=== PATIENT | female | born 1960 | race Caucasian/White ===

== ENCOUNTER → 2016-07-31 | Outpatient (CLI) | payer BC ==
[~2016-07-31] MED LIST: 'TENORMIN50 MG PO; HEART MED PO; LIPITOR20 MG PO; METFORMIN500 MG PO; NORCO 325 MG-51 TAB PO
[2016-07-31 10:25] LABS: ALKALINE PHOSPHATASE 97 U/L (45-117); BILIRUBIN, TOTAL 0.8 mg/dl (0.2-1.0); BUN 12 mg/dl (7-24); CARBON DIOXIDE 25 mmol/L (21-32); CHLORIDE 107 mmol/L (98-107); CHOLESTEROL 273 mg/dL (<200); CPK 62 U/L (26-192); EST GLOM FILT AFRICAN AMERICAN > 60 ml/min; GLUCOSE 102 mg/dL (65-99); HDL CHOLESTEROL 46 mg/dl (40-60); LDL CHOLESTEROL 169 mg/dL (9-159); POTASSIUM 3.9 mmol/L (3.5-5.1); SGOT/AST 26 IU/L (3-35); SGPT/ALT 74 U/L (12-78); SODIUM 141 mmol/L (136-145); TOTAL PROTEIN 7.7 gm/dL (6.4-8.2); TRIGLYCERIDES 292 mg/dl (<150); VLDL CHOLESTEROL 58 mg/dL (6-40)
== END | disposition home or self-care (01) ==
LOC: LAB 09:31
PROVIDERS: Family Medicine
DX: E78.00 Pure hypercholesterolemia, unspecified (principal); E55.9 Vitamin D deficiency, unspecified; I10 Essential (primary) hypertension

== ENCOUNTER → 2016-11-07 | Outpatient (CLI) | payer BC ==
[2016-11-07 08:59] LABS: ALBUMIN 3.8 gm/dl (3.1-4.5); ALKALINE PHOSPHATASE 112 U/L (45-117); BUN 13 mg/dl (7-24); CHLORIDE 107 mmol/L (98-107); CHOLESTEROL 199 mg/dL (<200); CPK 69 U/L (26-192); CREATININE 0.74 mg/dL (0.55-1.02); HDL CHOLESTEROL 41 mg/dl (40-60); LDL CHOLESTEROL 105 mg/dL (9-159); SGOT/AST 30 IU/L (3-35); SGPT/ALT 60 U/L (12-78); SODIUM 139 mmol/L (136-145); TOTAL PROTEIN 7.6 gm/dL (6.4-8.2); TRIGLYCERIDES 264 mg/dl (<150); VLDL CHOLESTEROL 53 mg/dL (6-40)
== END | disposition home or self-care (01) ==
LOC: LAB 08:03
PROVIDERS: Family Medicine
DX: E78.00 Pure hypercholesterolemia, unspecified (principal); E74.9 Disorder of carbohydrate metabolism, unspecified; E55.9 Vitamin D deficiency, unspecified

== ENCOUNTER → 2017-09-17 | Outpatient (CLI) | payer BC | END | disposition home or self-care (01) | LOC: RAD 12:15 | DX: M25.551 Pain in right hip (principal); R07.81 Pleurodynia ==

== ENCOUNTER → 2018-02-03 | Outpatient (CLI) | payer BC | END | disposition home or self-care (01) | LOC: RAD 15:55 | DX: M25.512 Pain in left shoulder (principal); M54.2 Cervicalgia ==

== ENCOUNTER → 2018-06-04 | Outpatient (CLI) | payer BC | END | disposition home or self-care (01) | LOC: MAMMO 09:52 | DX: Z12.31 Encounter for screening mammogram for malignant neoplasm of breast (principal); M81.0 Age-related osteoporosis without current pathological fracture; G89.29 Other chronic pain; M19.90 Unspecified osteoarthritis, unspecified site; E55.9 Vitamin D deficiency, unspecified; Z78.0 Asymptomatic menopausal state ==

== ENCOUNTER → 2019-02-20 | Outpatient (CLI) | payer BC ==
[2019-02-20 17:17] LABS: ALBUMIN 4.4 gm/dl (3.1-4.5); BUN 12 mg/dl (7-24); CHLORIDE 106 mmol/L (98-107); CHOLESTEROL 279 mg/dL (<200); CREATININE 0.76 mg/dL (0.55-1.02); POTASSIUM 3.5 mmol/L (3.5-5.1); SGOT/AST 46 IU/L (3-35); SGPT/ALT 84 U/L (12-78); SODIUM 139 mmol/L (136-145); TOTAL PROTEIN 8.4 gm/dL (6.4-8.2); TRIGLYCERIDES 250 mg/dl (<150); VLDL CHOLESTEROL 50 mg/dL (6-40)
[2019-02-20 17:19] LABS: ALKALINE PHOSPHATASE 109 U/L (45-117); CPK 106 U/L (26-192); HDL CHOLESTEROL 39 mg/dl (40-60); LDL CHOLESTEROL 190 mg/dL (9-159)
== END | disposition home or self-care (01) ==
LOC: LAB 15:49
PROVIDERS: Family Medicine
DX: E78.00 Pure hypercholesterolemia, unspecified (principal); E55.9 Vitamin D deficiency, unspecified

== ENCOUNTER → 2019-10-07 | Outpatient (CLI) | payer BC ==
[2019-10-07 14:10] LABS: HEMATOCRIT 42.4 % (37.0-47.0); MEAN CORPUSCULAR HGB 28.8 pg (27.0-31.0); MEAN CORPUSCULAR HGB CONC 32.8 g/dl (33.0-37.0); MEAN PLATELET VOLUME 9.4 fl (9.6-12.3); RED BLOOD COUNT 4.82 10*6/uL (4.10-5.10); RED CELL DISTRI WIDTH 12.7 % (0-14.5)
[2019-10-07 14:26] LABS: ALBUMIN 4.1 gm/dl (3.1-4.5); ALKALINE PHOSPHATASE 116 U/L (45-117); BUN 17 mg/dl (7-24); CHLORIDE 110 mmol/L (98-107); CHOLESTEROL 250 mg/dL (<200); HDL CHOLESTEROL 41 mg/dl (40-60); LDL CHOLESTEROL 135 mg/dL (9-159); POTASSIUM 3.7 mmol/L (3.5-5.1); SGOT/AST 39 IU/L (3-35); SGPT/ALT 81 U/L (12-78); SODIUM 138 mmol/L (136-145); TOTAL PROTEIN 8.3 gm/dL (6.4-8.2); TRIGLYCERIDES 369 mg/dl (<150); VLDL CHOLESTEROL 74 mg/dL (6-40)
== END | disposition home or self-care (01) ==
LOC: LAB 13:29
PROVIDERS: Family Medicine
DX: E55.9 Vitamin D deficiency, unspecified (principal); E78.00 Pure hypercholesterolemia, unspecified; M12.80 Other specific arthropathies, not elsewhere classified, unspecified site; I10 Essential (primary) hypertension

== ENCOUNTER → 2020-01-12 | Outpatient (CLI) | payer BC ==
[2020-01-12 09:35] LABS: HEMATOCRIT 42.6 % (37.0-47.0); MEAN CELL VOLUME 87.5 fl (81.0-99.0); MEAN CORPUSCULAR HGB 28.5 pg (27.0-31.0); MEAN CORPUSCULAR HGB CONC 32.6 g/dl (33.0-37.0); MEAN PLATELET VOLUME 9.4 fl (9.6-12.3); RED BLOOD COUNT 4.87 10*6/uL (4.10-5.10); RED CELL DISTRI WIDTH 12.7 % (0-14.5); WHITE BLOOD COUNT 7.8 10*3/uL (4.8-10.8)
[2020-01-12 09:59] LABS: ALBUMIN 4.2 gm/dl (3.1-4.5); ALKALINE PHOSPHATASE 116 U/L (45-117); BUN 14 mg/dl (7-24); CHLORIDE 109 mmol/L (98-107); CHOLESTEROL 209 mg/dL (<200); CPK 71 U/L (26-192); CREATININE 0.76 mg/dL (0.55-1.02); HDL CHOLESTEROL 45 mg/dl (40-60); LDL CHOLESTEROL 97 mg/dL (9-159); POTASSIUM 3.8 mmol/L (3.5-5.1); SGOT/AST 29 IU/L (3-35); SGPT/ALT 61 U/L (12-78); SODIUM 140 mmol/L (136-145); TRIGLYCERIDES 336 mg/dl (<150); VLDL CHOLESTEROL 67 mg/dL (6-40)
[2020-01-12 11:28] LABS: VITAMIN D, 25-HYDROXY 32.8 ng/mL (30-100)
== END | disposition home or self-care (01) ==
LOC: LAB 08:58
PROVIDERS: ATTEND Family Medicine
DX: I10 Essential (primary) hypertension (principal); E78.00 Pure hypercholesterolemia, unspecified; E66.9 Obesity, unspecified; E55.9 Vitamin D deficiency, unspecified; E74.9 Disorder of carbohydrate metabolism, unspecified

== ENCOUNTER → 2020-02-13 | Outpatient (CLI) | payer BC | END | disposition home or self-care (01) | LOC: COVID19 14:15 | PROVIDERS: ATTEND Nurse Practitioner Family | DX: U07.1 COVID-19 (principal) ==

== ENCOUNTER → 2020-02-17 | Outpatient (CLI) | payer BC | END | disposition home or self-care (01) | LOC: RAD 14:16 | PROVIDERS: ATTEND Nurse Practitioner Family | DX: R05 Cough (principal); R07.89 Other chest pain ==

== ENCOUNTER → 2020-05-06 | Outpatient (CLI) | payer BC ==
[~2020-05-06] MED LIST changes: +CALTRATE 600 +1 EACH PO; +CRESTOR10 M1 PO; +FISH OIL 1,2001 EACH PO; +FLECAINIDE ACET50 M1 PO; +FLONASE ALLERG9.9 ML NAS; +LOPRESSOR50 M1 PO; +SINGULAIR10 M1 PO; +TOPAMAX50 MG PO; +VITAMIN C250 M2 PO
[2020-05-06 13:24] LABS: HEMATOCRIT 43.6 % (37.0-47.0); MEAN CELL VOLUME 89.5 fl (81.0-99.0); MEAN CORPUSCULAR HGB 29.4 pg (27.0-31.0); MEAN CORPUSCULAR HGB CONC 32.8 g/dl (33.0-37.0); MEAN PLATELET VOLUME 9.6 fl (9.6-12.3); RED BLOOD COUNT 4.87 10*6/uL (4.10-5.10); RED CELL DISTRI WIDTH 12.8 % (0-14.5)
[2020-05-06 13:41] LABS: ALBUMIN 4.1 gm/dl (3.1-4.5); ALKALINE PHOSPHATASE 114 U/L (45-117); BUN 17 mg/dl (7-24); CHLORIDE 112 mmol/L (98-107); CHOLESTEROL 192 mg/dL (<200); CPK 78 U/L (26-192); CREATININE 0.77 mg/dL (0.55-1.02); HDL CHOLESTEROL 48 mg/dl (40-60); LDL CHOLESTEROL 92 mg/dL (9-159); POTASSIUM 4.2 mmol/L (3.5-5.1); SGOT/AST 35 IU/L (3-35); SGPT/ALT 70 U/L (12-78); SODIUM 140 mmol/L (136-145); TOTAL PROTEIN 8.2 gm/dL (6.4-8.2); TRIGLYCERIDES 261 mg/dl (<150); VLDL CHOLESTEROL 52 mg/dL (6-40)
== END | disposition home or self-care (01) ==
LOC: LAB 13:01
PROVIDERS: ATTEND Family Medicine
DX: I10 Essential (primary) hypertension (principal); E78.00 Pure hypercholesterolemia, unspecified

== ENCOUNTER → 2020-06-08 | Outpatient (CLI) | payer BC | END | disposition home or self-care (01) | LOC: CARD 00:14 | PROVIDERS: ATTEND Internal Medicine Advanced Heart Failure and Transplant Cardiology | DX: I48.0 Paroxysmal atrial fibrillation (principal); E78.5 Hyperlipidemia, unspecified ==

== ENCOUNTER → 2020-06-20 | Outpatient (CLI) | payer BC | END | disposition home or self-care (01) | LOC: CARD 08:30 | PROVIDERS: ATTEND Internal Medicine Advanced Heart Failure and Transplant Cardiology | DX: I51.7 Cardiomegaly (principal); I48.0 Paroxysmal atrial fibrillation; E78.5 Hyperlipidemia, unspecified ==

== ENCOUNTER → 2020-09-05 | Outpatient (CLI) | payer BC ==
[2020-09-05 12:24] LABS: HEMATOCRIT 40.6 % (37.0-47.0); MEAN CELL VOLUME 89.2 fl (81.0-99.0); MEAN CORPUSCULAR HGB 29.2 pg (27.0-31.0); MEAN CORPUSCULAR HGB CONC 32.8 g/dl (33.0-37.0); MEAN PLATELET VOLUME 9.1 fl (9.6-12.3); RED BLOOD COUNT 4.55 10*6/uL (4.10-5.10); RED CELL DISTRI WIDTH 12.7 % (0-14.5); WHITE BLOOD COUNT 6.5 10*3/uL (4.8-10.8)
[2020-09-05 12:57] LABS: ALBUMIN 3.9 gm/dl (3.1-4.5); ALKALINE PHOSPHATASE 108 U/L (45-117); BUN 13 mg/dl (7-24); CHLORIDE 113 mmol/L (98-107); CHOLESTEROL 295 mg/dL (<200); CPK 56 U/L (26-192); CREATININE 0.66 mg/dL (0.55-1.02); FREE T4 0.82 ng/dl (0.76-1.46); LDL CHOLESTEROL 181 mg/dL (9-159); POTASSIUM 3.8 mmol/L (3.5-5.1); SGOT/AST 34 IU/L (3-35); SGPT/ALT 77 U/L (12-78); SODIUM 142 mmol/L (136-145); TOTAL PROTEIN 7.7 gm/dL (6.4-8.2); TRIGLYCERIDES 370 mg/dl (<150)
== END | disposition home or self-care (01) ==
LOC: LAB 12:03
PROVIDERS: ATTEND Family Medicine
DX: I10 Essential (primary) hypertension (principal); E55.9 Vitamin D deficiency, unspecified; E78.00 Pure hypercholesterolemia, unspecified

== ENCOUNTER → 2020-12-26 | Outpatient (CLI) | payer BC ==
[2020-12-26 15:06] LABS: ALBUMIN 3.9 gm/dl (3.1-4.5); ALKALINE PHOSPHATASE 114 U/L (45-117); BUN 13 mg/dl (7-24); CHLORIDE 112 mmol/L (98-107); CHOLESTEROL 169 mg/dL (<200); CPK 74 U/L (26-192); CREATININE 0.79 mg/dL (0.55-1.02); LDL CHOLESTEROL 66 mg/dL (9-159); POTASSIUM 3.9 mmol/L (3.5-5.1); SGOT/AST 21 IU/L (3-35); SGPT/ALT 41 U/L (12-78); SODIUM 141 mmol/L (136-145); TOTAL PROTEIN 7.8 gm/dL (6.4-8.2); TRIGLYCERIDES 310 mg/dl (<150)
== END | disposition home or self-care (01) ==
LOC: LAB 14:25
PROVIDERS: ATTEND Family Medicine
DX: E78.00 Pure hypercholesterolemia, unspecified (principal)

== ENCOUNTER → 2021-02-23 | Outpatient (CLI) | payer BC | END | disposition home or self-care (01) | LOC: RAD 16:00 | PROVIDERS: ATTEND Family Medicine | DX: M25.531 Pain in right wrist (principal) ==

== ENCOUNTER → 2021-10-06 | Outpatient (CLI) | payer BC | END | disposition home or self-care (01) | LOC: LAB 13:19 | PROVIDERS: ATTEND Family Medicine | DX: E83.52 Hypercalcemia (principal) ==

== ENCOUNTER → 2021-12-12 | Outpatient (CLI) | payer BC ==
[2021-12-12 09:11] LABS: HEMATOCRIT 41.4 % (37.0-47.0); MEAN CELL VOLUME 86.6 fl (81.0-99.0); MEAN CORPUSCULAR HGB 29.9 pg (27.0-31.0); MEAN CORPUSCULAR HGB CONC 34.5 g/dl (33.0-37.0); RED BLOOD COUNT 4.78 10*6/uL (4.10-5.10); RED CELL DISTRI WIDTH 12.3 % (0-14.5); WHITE BLOOD COUNT 7.6 10*3/uL (4.8-10.8)
[2021-12-12 09:33] LABS: ALKALINE PHOSPHATASE 116 U/L (45-117); BUN 18 mg/dl (7-24); CHLORIDE 112 mmol/L (98-107); CHOLESTEROL 278 mg/dL (<200); CPK 44 U/L (26-192); POTASSIUM 4.1 mmol/L (3.5-5.1); SGOT/AST 23 IU/L (3-35); SGPT/ALT 51 U/L (12-78); SODIUM 141 mmol/L (136-145); TOTAL PROTEIN 7.8 gm/dL (6.4-8.2); TRIGLYCERIDES 534 mg/dl (<150)
== END | disposition home or self-care (01) ==
LOC: LAB 08:37
PROVIDERS: ATTEND Family Medicine
DX: E78.00 Pure hypercholesterolemia, unspecified (principal); I10 Essential (primary) hypertension

== ENCOUNTER → 2022-12-26 | Outpatient (CLI) | payer BC | END | disposition home or self-care (01) | LOC: MRI 09:00 | PROVIDERS: ATTEND Family Medicine | DX: G44.221 Chronic tension-type headache, intractable (principal); H57.12 Ocular pain, left eye; H51.9 Unspecified disorder of binocular movement; R51.9 Headache, unspecified ==

== ENCOUNTER → 2023-01-04 | Outpatient (CLI) | payer BC | END | disposition home or self-care (01) | LOC: US 14:18 | PROVIDERS: ATTEND Family Medicine | DX: I65.23 Occlusion and stenosis of bilateral carotid arteries (principal); R51.9 Headache, unspecified; R41.3 Other amnesia ==

== ENCOUNTER → 2023-08-16 | Outpatient (CLI) | payer BC ==
[2023-08-16 09:10] LABS: HEMATOCRIT 40.2 % (37.0-47.0); MEAN CELL VOLUME 87.4 fl (81.0-99.0); MEAN CORPUSCULAR HGB 29.6 pg (27.0-31.0); MEAN CORPUSCULAR HGB CONC 33.8 g/dl (33.0-37.0); MEAN PLATELET VOLUME 9.5 fl (9.6-12.3); RED BLOOD COUNT 4.6 10*6/uL (4.10-5.10); RED CELL DISTRI WIDTH 12.6 % (0-14.5); WHITE BLOOD COUNT 6.3 10*3/uL (4.8-10.8)
[2023-08-16 09:36] LABS: ALKALINE PHOSPHATASE 99 U/L (46-116); BUN 9 mg/dl (9-23); CHLORIDE 110 mmol/L (98-107); CHOLESTEROL 187 mg/dL (<200); CPK 84 U/L (34-171); LDL CHOLESTEROL 101 mg/dL (9-159); POTASSIUM 3.7 mmol/L (3.4-5.1); SGPT/ALT 31 U/L (5-49); TRIGLYCERIDES 202 mg/dl (<150)
== END | disposition home or self-care (01) ==
LOC: LAB 08:31
PROVIDERS: ATTEND Family Medicine
DX: I10 Essential (primary) hypertension (principal); E78.00 Pure hypercholesterolemia, unspecified; R00.2 Palpitations; E55.9 Vitamin D deficiency, unspecified

== ENCOUNTER → 2024-01-20 | Outpatient (CLI) | payer BC | END | disposition home or self-care (01) | LOC: RAD 01-17 14:00 | PROVIDERS: ATTEND Nurse Practitioner Women's Health | DX: M81.0 Age-related osteoporosis without current pathological fracture (principal); M85.80 Other specified disorders of bone density and structure, unspecified site ==

== ENCOUNTER → 2024-01-21 | Outpatient (CLI) | payer BC | END | disposition home or self-care (01) | LOC: MAMMO 02:15 | PROVIDERS: ATTEND Nurse Practitioner Women's Health | DX: N64.4 Mastodynia (principal); R92.1 Mammographic calcification found on diagnostic imaging of breast ==

== ENCOUNTER → 2024-03-09 | Outpatient (CLI) | payer BC ==
[2024-03-09 12:05] LABS: HEMATOCRIT 42.8 % (37.0-47.0); MEAN CELL VOLUME 88.8 fl (81.0-99.0); MEAN CORPUSCULAR HGB CONC 32.7 g/dl (33.0-37.0); MEAN PLATELET VOLUME 9.3 fl (9.6-12.3); RED BLOOD COUNT 4.82 10*6/uL (4.10-5.10); RED CELL DISTRI WIDTH 12.6 % (0-14.5); WHITE BLOOD COUNT 8.7 10*3/uL (4.8-10.8)
[2024-03-09 12:37] LABS: ALKALINE PHOSPHATASE 126 U/L (46-116); BUN 16 mg/dl (9-23); CHLORIDE 109 mmol/L (98-107); CHOLESTEROL 225 mg/dL (<200); LDL CHOLESTEROL 127 mg/dL (9-159); POTASSIUM 3.8 mmol/L (3.4-5.1); SGPT/ALT 28 U/L (5-49); TOTAL PROTEIN 7.5 gm/dL (6.0-8.0); TRIGLYCERIDES 277 mg/dl (<150)
== END | disposition home or self-care (01) ==
LOC: LAB 11:46
PROVIDERS: ATTEND Family Medicine
DX: I10 Essential (primary) hypertension (principal); E78.00 Pure hypercholesterolemia, unspecified; R53.83 Other fatigue

== ENCOUNTER → 2024-06-26 | Outpatient (CLI) | payer BC ==
[2024-06-26 10:47] LABS: HEMATOCRIT 43.2 % (37.0-47.0); MEAN CELL VOLUME 88.3 fl (81.0-99.0); MEAN CORPUSCULAR HGB 29.2 pg (27.0-31.0); MEAN CORPUSCULAR HGB CONC 33.1 g/dl (33.0-37.0); RED BLOOD COUNT 4.89 10*6/uL (4.10-5.10); RED CELL DISTRI WIDTH 12.6 % (0-14.5)
[2024-06-26 11:15] LABS: ALKALINE PHOSPHATASE 84 U/L (46-116); BUN 17 mg/dl (9-23); CHLORIDE 106 mmol/L (98-107); CHOLESTEROL 210 mg/dL (<200); LDL CHOLESTEROL 111 mg/dL (9-159); POTASSIUM 3.7 mmol/L (3.4-5.1); SGPT/ALT 25 U/L (5-49); TOTAL PROTEIN 7.6 gm/dL (6.0-8.0); TRIGLYCERIDES 253 mg/dl (<150)
[2024-06-26 11:41] LABS: VITAMIN D, 25-HYDROXY 32.3 ng/mL (30-100)
== END | disposition home or self-care (01) ==
LOC: LAB 10:32
PROVIDERS: ATTEND Family Medicine
DX: E55.9 Vitamin D deficiency, unspecified (principal); R53.83 Other fatigue; E74.9 Disorder of carbohydrate metabolism, unspecified; I25.10 Atherosclerotic heart disease of native coronary artery without angina pectoris; K21.9 Gastro-esophageal reflux disease without esophagitis

== ENCOUNTER → 2024-07-23 | Outpatient (CLI) | payer BC ==
[2024-07-23 08:30] LABS: BASO # 0.1 10*3/uL (0.0-0.1); BASO % 1.1 % (0.0-1.0); EOS # 0.3 10*3/uL (0.0-0.4); EOS % 3.8 % (1.0-4.0); HEMATOCRIT 42.7 % (37.0-47.0); MEAN CORPUSCULAR HGB 28.3 pg (27.0-31.0); MEAN CORPUSCULAR HGB CONC 32.6 g/dl (33.0-37.0); MEAN PLATELET VOLUME 9.9 fl (9.6-12.3); MONO # 0.4 10*3/uL (0.1-1.0); MONO % 6.2 % (3.0-9.0); PLATELET COUNT AUTOMATED 273 10*3/uL (130-400); RED BLOOD COUNT 4.91 10*6/uL (4.10-5.10); RED CELL DISTRI WIDTH 12.7 % (0-14.5); WHITE BLOOD COUNT 6.6 10*3/uL (4.8-10.8)
[2024-07-23 09:00] LABS: TOTAL PROTEIN 7.4 gm/dL (6.0-8.0)
== END | disposition home or self-care (01) ==
LOC: LAB 08:01 → US 09:00
PROVIDERS: ATTEND Nurse Practitioner Adult Health
DX: N60.01 Solitary cyst of right breast (principal); L72.8 Other follicular cysts of the skin and subcutaneous tissue; Z79.899 Other long term (current) drug therapy

== ENCOUNTER → 2024-09-09 | Outpatient (CLI) | payer BC ==
[2024-09-09 15:01] LABS: BUN 14 mg/dl (9-23); SGPT/ALT 21 U/L (5-49)
== END | disposition home or self-care (01) ==
LOC: LAB 14:12
PROVIDERS: ATTEND Family Medicine
DX: E78.00 Pure hypercholesterolemia, unspecified (principal); B35.1 Tinea unguium

== ENCOUNTER → 2024-11-02 | Outpatient (CLI) | payer BC ==
[2024-11-02 12:19] LABS: MEAN CELL VOLUME 87.0 fl (81.0-99.0); MEAN CORPUSCULAR HGB 28.4 pg (27.0-31.0); MEAN PLATELET VOLUME 9.3 fl (9.6-12.3); NUCLEATED RED BLOOD CELL 0.0 % (0.0-0.0); NUCLEATED RED BLOOD CELL 0.0 10*3/uL (0.0-0.0); PLATELET COUNT AUTOMATED 280.0 10*3/uL (130-400); RED CELL DISTRI WIDTH 12.6 % (0-14.5)
[2024-11-02 12:52] LABS: BUN 15 mg/dl (9-23); FREE T4 1.25 ng/dl (0.89-1.76); LDL CHOLESTEROL 129 mg/dL (9-159); SGPT/ALT 14 U/L (5-49)
[2024-11-02 12:53] LABS: VITAMIN D, 25-HYDROXY 46.4 ng/mL (30-100)
== END ==
LOC: LAB 11:59
PROVIDERS: ATTEND Family Medicine
DX: E78.00 Pure hypercholesterolemia, unspecified (principal); R53.83 Other fatigue; F03.90 Unspecified dementia, unspecified severity, without behavioral disturbance, psychotic disturbance, mood disturbance, and anxiety; R41.0 Disorientation, unspecified; R41.81 Age-related cognitive decline

== ENCOUNTER → 2024-11-13 | Outpatient (CLI) | payer BC | END | disposition home or self-care (01) | LOC: LAB 10:54 | PROVIDERS: ATTEND Student in an Organized Health Care Education/Training Program | DX: R41.3 Other amnesia (principal); G62.9 Polyneuropathy, unspecified; E11.9 Type 2 diabetes mellitus without complications ==

== ENCOUNTER → 2025-02-25 | Outpatient (CLI) | payer BC | END | disposition home or self-care (01) | LOC: MAMMO 08:41 | PROVIDERS: ATTEND Nurse Practitioner Women's Health | DX: Z12.31 Encounter for screening mammogram for malignant neoplasm of breast (principal); R92.313 Mammographic fatty tissue density, bilateral breasts ==